=== PATIENT | male | born 1965 | race Caucasian/White ===

== ENCOUNTER 2018-03-03 09:26 | Observation (INO) | payer BC ==
--- NOTE | 2018-03-03 09:41 | ED ---
Dizziness - HPI Summary HPI Summary: Pt is a 53 y/o male brought in by EMS who presents to the ED c/o dizziness. Today he was using a self-propelled harnessmaker for an hour, and suddenly became dizzy, diaphoretic, pale, and nauseated. He thought it was from low blood sugar, so he ate something, which exacerbated the nausea and caused him to vomit. As per , this episode lasted about 45 minutes. Pt denies any CP, abdominal pain, or LOC. The past few days he has had jaw pain, which he thinks is from TMJ, and right shoulder pain, which he thinks it muscular. PMHx Hashimotos disease. He denies any alcohol use or smoking. - History Of Current Complaint Stated Complaint: DIZZINESS Hx Obtained From: Patient, Family/Asw/Asuw Tactical Air Controller - Onset/Duration: Resolved Timing: Minutes - 45 minutes Character: Dizzy Aggravating Factor(s): Exertion - Using self-propelled harnessmaker Associated Signs And Symptoms: Positive: Nausea, Vomiting, Diaphoresis. Negative: Chest Pain - Allergies/Home Medications Allergies/Adverse Reactions: Allergies Allergy/AdvReac Type Severity Reaction Status Date / Time No Known Drug Allergies Allergy See Comment Verified 03/03/18 09:36 Home Medications: Home Medications Fluticasone-Salmeterol 100-50* [Advair Diskus 100-50*] 1 puff INH BID 03/03/18 [ History Confirmed 03/03/18] Levothyroxine Sodium 112 mcg PO DAILY 03/03/18 [History Confirmed 03/03/18] Liothyronine Sodium [Cytomel] 5 mcg PO BID 03/03/18 [History Confirmed 03/03/18] lamoTRIgine [Lamotrigine] 150 mg PO DAILY 03/03/18 [History Confirmed 03/03/18] PMH/Surg Hx/FS Hx/Imm Hx Endocrine/Hematology History: 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 Negative: Abdominal Pain Positive: Other - Pallor Neurological: Other - Dizziness All Other Systems Reviewed And Are Negative: Yes Physical Exam - Summary Physical Exam Summary: Appearance: Well appearing, no pain distress Skin: warm, dry, reflects adequate perfusion, vitiligo Head/face: normal Eyes: EOMI, TRENA ENT: mucous membranes moist Neck: supple, non-tender Respiratory: CTA, breath sounds present Cardiovascular: RRR, pulses symmetrical Abdomen: non-tender, soft Bowel Sounds: present Musculoskeletal: normal, strength/ROM intact Neuro: normal, sensory motor intact, A&Ox3 Triage Information Reviewed: Yes Vital Signs On Initial Exam: Initial Vitals Temp Pulse Resp BP Pulse Ox 98.0 F 68 16 117/92 95 03/03/18 09:31 03/03/18 09:31 03/03/18 09:31 03/03/18 09:31 03/03/18 09:31 Vital Signs Reviewed: Yes Diagnostics - Vital Signs Vital Signs Temp Pulse Resp BP Pulse Ox 03/03/18 09:31 98.0 F 68 16 117/92 95 - Laboratory Result Diagrams: 03/03/18 09:36 03/03/18 09:36 Lab Statement: Any lab studies that have been ordered have been reviewed, and results considered in the medical decision making process. - Radiology CXR Radiology Interpretation Completed By: Radiologist - NO ACTIVE CARDIOPULMONARY DISEASE. ED physician reviewed radiology report. - EKG 9:22 Cardiac Rate: NL - 63 bpm EKG Rhythm: Sinus Rhythm ST Segment: Normal Summary of EKG Findings: Nl axis, nl intervals Dizzy Course/Dx - Course Course Of Treatment: Patient without independent risk factors for cardiac disease presents with nausea, vomiting and malaise it began abruptly well using a snowblower and heavy wet snow. Concern for possible cardiac etiology. First EKG, troponin have been negative. Admit for further. - Diagnoses Differential Diagnosis/HQI/PQRI: Coronary Artery Disease, Hyperventilation, Hypovolemia, Metabolic Abnormality, Myocardial Infarction, Other - Acute coronary syndrome, exertional dyspnea Provider Diagnoses: Acute coronary syndrome - Provider Notifications Discussed Care Of Patient With: Lynette Lopez Time Discussed With Above Provider: 09:53 Instructed by Provider To: Admit As Inpatient - Dr. Lopez accepts pt for admission. Discharge - Sign-Out/Discharge Documenting (check all that apply): Patient Departure - Admit - Discharge Plan Condition: Stable Disposition: ADMITTED TO [facility] Referrals: No Primary Care Phys,NOPCP [Primary Care Provider] - - Billing Disposition and Condition Condition: STABLE Disposition: Admitted to [facility] - Attestation Statements Document Initiated by Scribe: Yes Documenting Scribe: Lizet Banuelos Provider For Whom Scribe is Documenting (Include Credential): Rex Hunt MD Scribe Attestation: Lizet Michaels, scribed for Rex Hunt MD on 03/03/18 at 1028. Scribe Documentation Reviewed: Yes Provider Attestation: The documentation as recorded by the Lizet barr accurately reflects the service I personally performed and the decisions made by Rex mcelroy MD
[2018-03-03 09:49] LABS: ABS Basophils 0 10^3/ul (0-0.2); ABS Eosinophils 0.2 10^3/ul (0-0.6); ABS Lymphocytes 0.9 10^3/ul (1.0-4.8); ABS Monocytes 0.6 10^3/ul (0-0.8); ABS Neutrophils 4.4 10^3/ul (1.5-7.7); ABS Nucleated RBC 0 10^3/ul; Eosinophil % 2.5 % (0-6); Hematocrit 43 % (42-52); Hemoglobin 14.5 g/dl (14.0-18.0); Lymphocyte % 14.8 % (25-47); Mean Corpuscular HGB Conc 34 g/dl (31-36); Mean Corpuscular Hemoglobin 29 pg (27-31); Mean Corpuscular Volume 87 fL (80-94); Nucleated Red Blood Cells % 0; Platelet Count 295 10^3/ul (150-450); Red Blood Count 4.92 10^6/ul (4.00-5.40); Red Cell Distribution Width 13 % (10.5-15); White Blood Count 6.2 10^3/ul (3.5-10.8)
[2018-03-03 10:09] LABS: EGFR Non-African American 72.8 (>60)
[2018-03-03 10:10] LABS: INR 1.03 (0.77-1.02)
[2018-03-03] MEDS ORDERED: Morphine VIAL* 4 MG/ML VIAL (1 ml vial) IV PRN (11:03)
[2018-03-03] MEDS ORDERED: Acetaminophen TAB* 325 MG PO PRN (11:03)
[2018-03-03] MEDS ORDERED: NS 0.9% 1000 ML* 1,000 ML IV SCH (11:15)
--- NOTE | 2018-03-03 17:09 | HP ---
CC: Dr. Juarez * HISTORY AND PHYSICAL: DATE OF ADMISSION: 03/03/18 PRIMARY CARE PROVIDER: Dr. Juarez. CHIEF COMPLAINT: Nausea and vomiting after using a director special education. HISTORY OF PRESENT ILLNESS: Gaston Marc is a 53-year-old male with history of Eve's, on thyroid supplements currently, who presented to the hospital with complaints of nausea, vomiting, dizziness, and near syncope after he was using director special education today. The patient stated that he got up in the morning, he took his morning medications, and he got outside to use a director special education. He has self- propelled motorized director special education and he said he did not really use that much of a strength to be able to push it through his driveway. He felt okay. He did not have chest pain or shortness of breath, but upon returning home, he all of a sudden started developing nausea, vomiting, feeling dizzy. He also went to the bathroom and had a bowel movement. He denied abdominal cramping. He stated that he felt diaphoretic and his stated that he looked "white as a sheet." He denied any chest pain or shortness of breath during the episode. He came into ED for evaluation. At this point, his nausea and vomiting resolved. He denies any chest pain. 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 The patient denies any recent problems with exercise tolerance. He lifts weight 3 times a week without any problems recently. He is going to be placed on overnight observation with the diagnosis of nausea and vomiting after exercise to rule out acute coronary syndrome. PAST MEDICAL HISTORY: 1. History of Eve's now with hypothyroidism. 2. History of "unstable mood," on Lamictal. 3. Asthma. MEDICATIONS: Include: 1. Lamotrigine 150 mg daily. 2. Cytomel 5 mcg b.i.d. 3. Levothyroxine 112 mcg daily. 4. Advair 100/50 one puff inhalation b.i.d. ALLERGIES: No known drug allergies. FAMILY HISTORY: Positive for mother with hypertension, sister with Eve. No history of heart disease, cancer, diabetes. SOCIAL HISTORY: The patient stated that he smoked cigarettes for 10 years, until he turned 20, then stopped. He denies any current use of alcohol, tobacco , or drugs. He lives with his who is his surrogate. 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 REVIEW OF SYSTEMS: Please see history of present illness. In addition to above mentioned, the patient stated that they have been remodeling in the kitchen and his diet had not been good. Yesterday, he had a hot dog and Abhinav' s for dinner. Today, he did not eat anything prior to the episode of nausea and diaphoresis. All the remaining 12 systems were reviewed with the patient and were otherwise negative. PHYSICAL EXAMINATION GENERAL: The patient is a very pleasant 53-year-old male, who is not in acute distress. Alert, awake, and oriented x 3. VITAL SIGNS: Blood pressure of 125/92 when lying down, down to 103/80 when sitting up. The patient's heart rate had been in the 60s and 70s when checking his orthostatics. His systolic pressures were up to 122 again when standing up. Respiratory rate 16, oxygen saturation 95% on room air, temperature 98.0. HEENT: Head atraumatic, normocephalic. Eyes: Pupils are equal and reactive to light and accommodation. Oropharynx is clear. Mucosa moist. NECK: Supple. No JVD. No bruits bilaterally. RESPIRATORY: Clear to auscultation bilaterally. CARDIOVASCULAR: Regular rate and rhythm. No murmur. ABDOMEN: Soft, nontender. Bowel sounds are present in all 4 quadrants. EXTREMITIES: There is no edema. Pulses +2 bilaterally. There is no clubbing and no cyanosis. NEURO EVALUATION: Speech clear. Cranial nerves II through XII grossly intact. Motor strength is 5/5 bilaterally. SKIN: On evaluation of the skin, the patient has lesions that appeared to be vitiligo related on his upper back. DIAGNOSTIC STUDIES/LAB DATA: Laboratory data showed white blood cell count of 6.2, hemoglobin of 14.5, hematocrit of 43, and platelets of 195. Sodium was 138 , potassium 4.0, chloride 106, carbon dioxide 28, BUN 15, creatinine 1.06. Liver function is unremarkable. TSH pending. Brain natriuretic peptide was 13 and troponin of 0. The patient's portable chest x-ray read by the radiologist as "no active cardiopulmonary disease." The patient's EKG showed normal sinus rhythm with heart rate of 63 beats per minute with negative T-waves in lead III, and in aVF and no ST changes. ASSESSMENT AND PLAN: 1. An episode of nausea, vomiting, and diaphoresis and dizziness after exercise. At this point, the patient does have orthostatic hypotension from lying down to sitting up. His systolic pressure with difference was more than 20. At this point, he stated that usually his blood pressure runs higher and currently they are in the low 100s range. I suspect the patient is dehydrated. He could have been hypoglycemic, but he also stated that he ate a little a bit after he started getting nauseated. At this point, he is going to be placed on intravenous fluids. He is going to be admitted under observation to telemetry monitoring floor with followup troponins. If his second troponins turns out to be negative, he is going to undergo a treadmill cardiac stress test likely today. If we were unable to get the stress test today, then plan for the patient to be observed overnight with follow up troponins and discharge in the morning as per the patient's wishes. The patient was offered to wait for cardiac stress test until Tuesday since we do not have availability for the patient to undergo a stress test over the weekend if that were to be necessary, but he refused. 2. For his hypothyroidism, he is going to be continued on his thyroid supplement. 3. For his history of mood disorder, Lamictal is going to be continued. 4. For DVT prophylaxis, the patient is low risk and ambulation is going to be encouraged. TIME SPENT: Approximately 70 minutes was spent on the admission of this patient , more than half that time was spent [id number] with the patient during the interview and physical exam. [id number]/[facility] #: [id number] EUGENIO
[2018-03-03] MEDS: Mometasone/Formoter 100/5 MDI INH SCH (19:46)
[2018-03-04 03:45] VITALS: BP 114/71
[2018-03-04 05:16] LABS: ABS Basophils 0 10^3/ul (0-0.2); ABS Eosinophils 0.2 10^3/ul (0-0.6); ABS Lymphocytes 1.7 10^3/ul (1.0-4.8); ABS Monocytes 0.7 10^3/ul (0-0.8); ABS Neutrophils 3.3 10^3/ul (1.5-7.7); ABS Nucleated RBC 0 10^3/ul; Eosinophil % 4.1 % (0-6); Hematocrit 40 % (42-52); Hemoglobin 13.5 g/dl (14.0-18.0); Lymphocyte % 28.4 % (25-47); Mean Corpuscular HGB Conc 34 g/dl (31-36); Mean Corpuscular Hemoglobin 30 pg (27-31); Mean Corpuscular Volume 87 fL (80-94); Mean Platelet Volume 7.1 fL (7.4-10.4); Nucleated Red Blood Cells % 0.1; Platelet Count 264 10^3/ul (150-450); Red Blood Count 4.57 10^6/ul (4.00-5.40); Red Cell Distribution Width 13 % (10.5-15)
[2018-03-04 05:34] LABS: EGFR Non-African American 80.7 (>60)
[2018-03-04] MEDS ORDERED: Levothyroxine TAB* 112 MCG TAB PO SCH (06:00)
[2018-03-04] MEDS: Mometasone/Formoter 100/5 MDI INH SCH (07:17)
[2018-03-04] MEDS ORDERED: lamoTRIgine TAB(*) 100 MG PO SCH (09:00)
[2018-03-04] MEDS ORDERED: Liothyronine TAB* 5 MCG PO SCH (09:00)
--- NOTE | 2018-03-05 00:05 | DS ---
CC: Dr. Juarez * DISCHARGE SUMMARY: DATE OF ADMISSION: 03/03/18 DATE OF DISCHARGE: 03/04/18 PRIMARY CARE PROVIDER: Dr. Juarez. DISCHARGE DIAGNOSIS: Episode of diaphoresis, dizziness, and nausea, no vomiting after using a route salesman and driver in the morning with negative so far cardiac workup. SECONDARY DIAGNOSES: 1. History of Eve's with resultant hypothyroidism. 2. History of further unspecified mood disorder, on Lamictal. MEDICATIONS AT DISCHARGE: Unchanged from admission and include: 1. Advair 100/50 one inhalation b.i.d. 2. Levothyroxine 112 mcg daily. 3. Cytomel 5 mcg b.i.d. 4. Lamictal 150 mg daily. LABORATORY DATA AND STUDIES PERFORMED DURING THE HOSPITAL STAY: On 03/04/18 showed sodium 131, potassium 4.3, chloride 111, carbon dioxide 28, BUN 18, creatinine 0.97. Troponin was 0 checked 3 times. The patient's TSH was 0.7. CBC: White blood cell count of 6.0, hemoglobin of 13.5, hematocrit of 40, and platelet count of 64. EKG showed no acute ST changes and this morning was noted to be in normal sinus rhythm with a heart rate of 60 beats per minute with no ST changes. HOSPITALIZATION COURSE: Gaston Marc is a 53-year-old male, who was using his self-propelling route salesman and driver in the morning and after coming back home, he developed nausea, vomiting. He has had a bowel movement, was diaphoretic and dizzy. His was afraid the patient was having a heart attack and she brought him to the ED for evaluation. Here, the patient was noted to have mild orthostatic symptoms. When he was sitting up, his blood pressure dropped by over 20. At this point, he was placed on overnight observation to rule out acute coronary syndrome. His serial EKGs and troponins were unremarkable. He was placed on intravenous fluids with hydration. The patient did not eat or drink before he was using route salesman and driver in the morning. At this point, the patient's symptoms are related to orthostasis and not eating and not true cardiac origin. Nevertheless, the patient is recommended to follow up with the primary care provider, Dr. Juarez, in approximately 4 to 7 days in consideration of further workup that may include a cardiac stress test. PHYSICAL EXAMINATION: At the time of discharge is unchanged from admission. [id number]/[facility] #: [id number] MTDD
== END 2018-03-04 07:50 | disposition home or self-care (01) ==
LOC: ED 09:26 → MEDTELE 11:02
PROVIDERS: ADMIT Internal Medicine; ATTEND Internal Medicine
DX: R61 Generalized hyperhidrosis (principal); R42 Dizziness and giddiness; R11.0 Nausea; E06.3 Autoimmune thyroiditis; F39 Unspecified mood [affective] disorder; Z79.899 Other long term (current) drug therapy; J45.909 Unspecified asthma, uncomplicated; Z87.891 Personal history of nicotine dependence
CPT/HCPCS: 36415; 71045; 80048; 80053; 83605; 83880; 84443; 84484; 85025; 85610; 93005; 96361; 96374; 99284; A9270-GY; G0378